=== PATIENT | male | born 1985 | race Hispanic/Latino ===

== ENCOUNTER 2023-04-09 05:20 | Emergency (ER) | payer SELFPAY ==
--- NOTE | 2023-04-09 05:57 | ER ---
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 05:24 Coronavirus screen: Vaccine status: Patient reports being unvaccinated. Client denies pf1 travel out of the [place] in the last 14 days. At this time, the client does not indicate any symptoms associated with coronavirus-19. Ebola Screen: Patient negative for fever greater than or equal to 101.5 degrees Fahrenheit, and additional compatible Ebola Virus Disease symptoms. Initial Sepsis Screen: Does the patient meet any 2 criteria? No. Patient's initial sepsis screen is negative. Does the patient have a suspected source of infection? No. Patient's initial sepsis screen is negative. Risk Assessment: Do you want to hurt yourself or someone else? Patient reports no desire to harm self or others. 05:24 Method Of Arrival: Ambulatory pf1 05:24 Acuity: LEONIDAS 4 pf1 Historical: - Allergies: 05:44 No Known Allergies; pf1 - PMHx: 05:44 None; pf1 - PSHx: 05:44 None; pf1 - Immunization history:: Adult Immunizations up to date, Client reports having NOT received the Covid vaccine. Last tetanus immunization: > 10 years ago Flu vaccine is not up to date. - Social history:: Smoking status: Patient reports the use of cigarette tobacco products, Patient uses alcohol, occasionally. Patient/guardian denies using street drugs. - Family history:: not pertinent. - Hospitalizations: : No recent hospitalization is reported. Screenin:02 [facility] ED Fall Risk Assessment (Adult) History of falling in the last 3 months, jb4 including since admission No falls in past 3 months (0 pts) Confusion or Disorientation No (0 pts) Score/Fall Risk Level 0 - 2 = Low Risk Oriented to surroundings. Abuse screen: Denies threats or abuse. Nutritional screening: No deficits noted. Tuberculosis screening: No symptoms or risk factors identified. Assessment: 06:02 General: Appears in no apparent distress. comfortable, Behavior is calm, cooperative, jb4 appropriate for age. Pain: Denies pain. Neuro: Level of Consciousness is awake, alert, obeys commands, Oriented to person, place, time, situation. Cardiovascular: Patient's skin is warm and dry. Respiratory: Airway is patent Respiratory effort is even, unlabored, Respiratory pattern is regular, symmetrical. GI: No signs and/or symptoms were reported involving the gastrointestinal system. : No signs and/or symptoms were reported regarding the genitourinary system. EENT: No signs and/or symptoms were reported regarding the EENT system. Derm: Skin is intact, Skin is pink, warm \T\ dry. Musculoskeletal: Circulation, motion, and sensation intact. Range of motion:. Vital Signs: 05:24 BP 125 / 76; Pulse 73; Resp 16; Temp 97.9; Pulse Ox 99% on R/A; Weight 90.72 kg; Height pf1 6 ft. 0 in. ; Pain 0/10; 05:24 Body Mass Index 27.12 (90.72 kg, 182.88 cm) pf1 05:24 Pain Scale: Adult pf1 ED Course: 05:22 Patient arrived in ED. j6 05:22 Flako Ely MD is Attending Physician. rn 05:44 Triage completed. pf1 06:02 Patient has correct armband on for positive identification. Bed in low position. Call 4 light in reach. Side rails up X 1. Client placed on continuous cardiac and pulse oximetry monitoring. NIBP monitoring applied. framing and hanging on. 06:02 No provider procedures requiring assistance completed. Patient admitted, IV remains in jb4 place. Administered Medications: No medications were administered Medication: 06:02 VIS not applicable for this client. jb4 Outcome: 05:56 Discharge ordered by . rn 06:02 Discharged to home ambulatory. jb4 06:02 Condition: stable 06:02 Discharge instructions given to patient, Instructed on discharge instructions, follow up and referral plans. Demonstrated understanding of instructions, follow-up care. 06:06 Patient left the ED. jb4 Signatures: Flako Ely MD MD rn Bryson, James, RN RN jb4 Aurora Carrasquillo [facility] Claudette Truong RN RN pf1
--- NOTE | 2023-04-09 05:57 | EDPHYS ---
Physician Documentation [facility] Name: Jass Ponce Jr Age: 37 yrs Sex: Male : 1985 Arrival Date: 04/09/2023 Time: 05:20 Bed 6 Private MD: ED Physician Flako Ely HPI: 04/09 05:51 This 37 yrs old Male presents to ER via Ambulatory with complaints of Foreign rn Body In Ear. 05:51 The patient presents with a foreign body sensation. The complaints affect the left ear. rn Onset: The symptoms/episode began/occurred just prior to arrival. Modifying factors: The symptoms are alleviated by Irrigation with water. Severity of symptoms: At their worst the symptoms were mild in the emergency department the symptoms have resolved. The patient has not experienced similar symptoms in the past. Patient reports staying at rental house with aunt problems. Woke up with foreign body sensation in the left ear. Had mild pain in left ear, irrigated the ear and approximately 5 to 10 minutes later felt better. Currently does not feel foreign body sensation just feels a little irritated but wanted to make sure nothing was in there. Denies fever or recent illness or trauma. 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 Historical: - Allergies: 05:44 No Known Allergies; pf1 - PMHx: 05:44 None; pf1 - PSHx: 05:44 None; pf1 - Immunization history:: Adult Immunizations up to date, Client reports having NOT received the Covid vaccine. Last tetanus immunization: > 10 years ago Flu vaccine is not up to date. - Social history:: Smoking status: Patient reports the use of cigarette tobacco products, Patient uses alcohol, occasionally. Patient/guardian denies using street drugs. - Family history:: not pertinent. - Hospitalizations: : No recent hospitalization is reported. ROS: 05:51 Constitutional: Negative for fever, chills, and weight loss, ENT: Mild pain left ear rn Exam: 05:51 Constitutional: This is a well developed, well nourished patient who is awake, alert, rn and in no acute distress. ENT: Left auditory canal clear without foreign body. Left tympanic membrane without perforation. Mild erythema of left tympanic membrane but does not appear infected, appears more consistent with the irrigation patient describes prior to coming in. Vital Signs: 05:24 BP 125 / 76; Pulse 73; Resp 16; Temp 97.9; Pulse Ox 99% on R/A; Weight 90.72 kg; Height pf1 6 ft. 0 in. ; Pain 0/10; 05:24 Body Mass Index 27.12 (90.72 kg, 182.88 cm) pf1 05:24 Pain Scale: Adult pf1 MDM: 05:23 Patient medically screened. rn 05:51 Differential diagnosis: foreign body, acute otalgia, cerumen impaction. Data reviewed: rn vital signs, nurses notes, and as a result, I will discharge patient. Counseling: I had a detailed discussion with the patient and/or guardian regarding the historical points, exam findings, and any diagnostic results supporting the discharge/admit diagnosis, the need for outpatient follow up, to return to the emergency department if symptoms worsen or persist or if there are any questions or concerns that arise at home. Special discussion: I discussed with the patient/guardian in detail that at this point there is no indication for admission to the hospital. It is understood, however, that if the symptoms persist or worsen the patient needs to return immediately for re-evaluation. ED course: No foreign body identified in left ear, nothing found upon ear irrigation either. Will DC home with return precautions.. 04/09 05:36 Order name: Dagmar. 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
[2023-04-09 06:16] VITALS: BP 125/76; TEMP 97.9; O2SAT 99
== END 2023-04-09 06:06 | disposition home or self-care (01) ==
LOC: ER 05:20
DX: T16.2XXA Foreign body in left ear, initial encounter (principal)
CPT/HCPCS: 99284